=== PATIENT | female | born 1950 | race Caucasian/White ===

== ENCOUNTER 2025-11-10 13:12 | Outpatient (AMB) | payer BC, SELFPAY ==
--- OUTSIDE RECORDS SUMMARY | 2025-11-10 13:14 | XMS_ITS | Encounter Summary ---
Author Organization [facility] Address [address] [place] [address] Phone Care Team Providers Care Note Teller Name Role Phone Marvin Bailey MD Primary Care Provider [phone] Marvin Bailey MD Primary Care Provider [phone] Jean Cardenas MD Primary Care Provider [phone] Robby Ambrosio MD Primary Care Provide r ElieSonny mullen DO Unavailable [phone] Encounter Details Date Type Department Care Team (Late st Contact Info) Description 01/01/2018 Ancillary Orders [address] [address] Molly Olson PA-C [address] [place] [address] Orthopedics & Sports Medicine, [facility] [place] [address] [email or web address] History of total knee arthroplasty, right Social History Tobacco Use Types Packs/Day Years Used Date Smoking Tobacco: Never Smokeless Tobacco: Never Alcohol Use Standard Drinks/Week Comments Yes 0 (1 standard drink = 0.6 oz pur e alcohol) rarely Comments Unknown Sex and Gender Information Value Date Recorded Sex Assigned at Female 05/30/2020 5:41 PM EDT Legal Sex Female 10:05 PM EDT Gender Identity Female 05/30/2020 5:41 PM EDT Sexual Orientation Straight 05/30/2020 5: 41 PM EDT documented as of this encounter Plan of Treatment Upcoming Encounters Date Type Department Care Team (Late st Contact Info) Description 03/16/2026 1:30 PM EDT Office Visit [facility] [address] [place] [address] Sonny Delgadillo DO [address] [place] [address] [email or web address] documented as of this encounter Results * XR KNEE 3 VIEW (RIGHT) (01/01/2018 11:15 AM EST) Narrative Zoraida Sawyer Y - 01/01/2018 11:15 AM EST This image report has been auto-finalized and has not been read by a Radiologist. Interpretation has been included in the provider encounter note for this date of service. Molly Olson PA-C IMG XR LOWER EXTREMI TY Final Result documented in this encounter Visit Diagnoses Diagnosis History of total knee arthroplasty, right History of total knee arthroplasty, right documented in this encounter Additional Health Concerns Infection Onset Date Last Indicated Resolved Time CoV-Risk 03/24/2024 03/24/2024 04/04/2024 1:23 AM EDT documented as of this encounter Care Teams Note Teller Relationship Specialty Start Date End [place] [address] [email or web address] PCP - General 09/02/17 08/09/19 [place] [address] PCP - General Internal Medicine 08/10/19 05/29/20 Jean Cardenas MD [address] [address] [email or web address] PCP - General 05/30/20 07/08/21 Robby Ambrosio MD [address] [address] PCP - General Family Medicine 07/09/21 Sonny Delgadillo DO [address] [place] [address] Geriatric Medicine 09/03/25 documented as of this encounter Additional Source Comments The information contained in this document represents components of the legal health record. It is not the complete legal health record.[facility]
--- OUTSIDE RECORDS SUMMARY | 2025-11-10 13:14 | XMS_ITS | Encounter Summary ---
Author Organization [facility] Address [address] [place] [address] [address] [place] [address] Phone Care Team Providers Care Weatherization Operations Manager Name Role Phone Marvin Bailey MD Primary Care Provider [phone] Marvin Bailey MD Primary Care Provider [phone] Jean Cardenas MD Primary Care Provider [phone] Robby Ambrosio MD Primary Care Provide r ElieSonny mullen DO Unavailable [phone] Encounter Details Date Type Department Care Team (Late st Contact Info) Description 01/01/2018 Ancillary Orders [facility] [address] [place] [address] Molly Olson PA-C [address] [place] [address] Orthopedics & Sports Medicine, [place] [address] Social History Tobacco Use Types Packs/Day Years [...] Upcoming Encounters Date Type Department Care Team ([facility] st Contact Info) Description 03/16/2026 1:30 PM EDT Office Visit [facility] Geriatric[facility] [address] [place] [address] [place] [address] [email or web address] documented as of this encounter Visit Diagnoses Not on filedocumented in this encounter Additional Health Concerns Infection Onset Date Last Indicated Resolved Time CoV-Risk 03/24/2024 03/24/2024 04/04/2024 1:23 AM EDT documented as of this encounter Care Teams Weatherization Operations Manager Relationship Specialty Start Date End [place] [address] [email or web address] PCP - General 09/02/17 08/09/19 [place] [address] [email or web address] PCP - General Internal Medicine 08/10/19 05/29/20 Jean Cardenas MD [address] [address] [email or web address] PCP - General 05/30/20 07/08/21 Robby Ambrosio MD [address] [address] PCP - General Family Medicine 07/09/21 Sonny Delgadillo DO [address] [place] [address] [email or web address] Geriatric Medicine 09/03/25 documented as of this encounter Additional Source Comments The information contained in this document represents components of the legal health record. It is not the complete legal health record.[facility]
--- OUTSIDE RECORDS SUMMARY | 2025-11-10 13:14 | XMS_ITS | Clinical Summary ---
Author Organization [facility] Address [address] [place] [address] Phone Care Team Providers Care Stone Rougher Name Role Phone Robby Ambrosio MD Primary Care Provide r Sonny Delgadillo DO Unavailable [phone] Allergies Active Allergy Reactions Criticality Noted Date Comments Diazepam Headaches Medium 10/26/2015 Other reaction(s): Other (See Comments) Naproxen Nausea and/or Vomiting 09/27/2023 Medications MULTIVIT-MINERAL S/FERROUS FUM (MULTI VITAMIN ORAL) Active FLUoxetine (PROZAC) 40 MG capsule Take 40 mg by mouth daily. Active cholecalciferol (VITAMIN D3) 2,000 unit capsule Take 2,000 Units by mouth daily. Active omeprazole (PRILOSEC) 20 MG capsule Take by mouth daily. 1 Active losartan (COZAAR) 25 MG tabletIndication s:hypertension Take 25 mg by mouth daily. Indications: high blood pressure Active albuterol 90 mcg/actuation inhaler INHALE 1 PUFF 4 TIMES A DAY NEEDED WHEEZE 3 Active albuterol 2.5 mg/0.5 mL nebulizer solution Take 2.5 mg by nebulization . Active buPROPion (WELLBUTRIN XL) 150 MG ER 24 hr tablet Take 1 tablet by mouth every morning. 5 Active TRELEGY ELLIPTA 100-62.5-25 mcg inhalation powder INHALE 1 PUFF EVERY DAY FOR 30 DAYS 5 Active donepeziL (ARICEPT) 5 MG tabletIndication s:Mild vascular dementia with mood disturbance TAKE 1 TABLET (5 MG TOTAL) BY MOUTH DAILY. 90 tablet Active meloxicam (MOBIC) 7.5 MG tablet Take 7.5 mg by mouth daily. 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 BMI 45.0-49.9, adult 09/16/2025 Hypochloremia 09/16/2025 Hyponatremia 09/16/2025 Left knee pain 09/16/2025 Major depressive disorder, recurrent episode, mi ld 09/16/2025 Dementia 09/16/2025 Morbid obesity 09/16/2025 Urinary incontinence 09/16/2025 Mild vascular dementia with mood disturbance 03/2025 Dizziness 06/10/2025 Tremor 06/10/2025 Gluteal pain 06/30/2024 Moderate persistent asthma 09/27/202309/27 Primary osteoarthritis of both knees 09/27/2023 09/27/2023 COVID-19 virus infection 06/20/2022 023 Gastroesophageal reflux disease with hiatal claudia ia 06/20/2022 09/27/2023 AYAKA (obstructive sleep apnea) 06/20/2022 Overview (09/27/2023): severe severe Prediabetes 06/20/2022 09/27/2023 Asthma 06/20/2022 Concussion 06/11/2022 09/27/2023 Balance problem 06/11/2022 Hematoma 06/11/2022 Major depression in remission 06/11/2022 Orbital fracture 06/11/2022 BPPV (benign paroxysmal positional vertigo) 06/202209/27/2023 Lower GI bleed 05/30/2020 Assessment & Plan (05/30/2020 10:59 PM EDT): I suspect lower source, such as diverticular or hemorrhoidal. Other differential diagnosis includes colitis, given the recent use of antibiotics, and colon cancer. She does not have abdominal pain or fever. Patient reports no history of GI bleed. She did have colonoscopy 15 years ago that was normal. She does take low-dose aspirin daily, and also recently started essential oils plus probiotic daily. She does relate that she has been on amoxicillin for a UTI for the past 4 days. Currently no active hemorrhage. She is hemodynamically stable. Hemoglobin is stable at 13. 1. Observation on the medical floor 2. Serial CBC, transfuse for hemoglobin less than 7 3. GoLYTELY prep this evening, GI will evaluate in the morning for colonoscopy 4. Serial abdominal exams 5. Send stool for WBC, culture, and C. difficile PCR 6. Clear liquid diet now, n.p.o. after midnight for colonoscopy tomorrow 7. Gentle IV fluid hydration after midnight with LR at 100 cc/h 8. Continue PPI as prescribed, hold aspirin UTI (urinary tract infection) 05/30/2020 Assessment & Plan (05/30/2020 10:46 PM EDT): No current urinary symptoms. No fever. Hold amoxicillin, repeat urinalysis with reflex culture. Hypertension 10/14/2018 Assessment & Plan (05/30/2020 10:46 PM EDT): Blood pressure is controlled. Hold hydrochlorothiazide with IV fluid hydration and bowel prep tonight. Depression 10/14/2018 Assessment & Plan (05/30/2020 10:45 PM EDT): Mood is stable. No SI or HI. Continue fluoxetine as prescribed. S/P TKR (total knee replacement) using cement, l eft 10/14/2018 Status post total right knee replacement 018 Overview (01/02/2018): 12/17/[address] Pedraza Primary osteoarthritis of right knee 12/17/2017 Primary osteoarthritis of left knee Encounters Date Type Department Care Team Description 09/18/2025 Refill [facility] [address] [place] [address] Sonny Delgadillo, DO Medication Refill 09/16/2025 9:30 AM EDT Office Visit [facility] [address] [place] [address] Sonny Delgadillo, Mild vascular dementia with mood disturbance (Primary Dx); Encounter for medication review; Encounter for support to caregiver; Mood disorder; Advance care planning from Last 3 Months Immunizations Immunization Administration Dates Next Due Influenza High-Dose Quadrivalent Preservative Fr ee IM 09/20/2021 Tdap 10/16/2019 Family History Medical History Relation Comments Hemophilia Brother Breast cancer Mother Relation Status Comments Brother Mother Social History Tobacco Use Types Packs/Day Years Used Date Smoking Tobacco: Never Smokeless Tobacco: Never Tobacco Cessation:Counseling Given: Not Answered Alcohol Use Standard Drinks/Week Comments Not Currently 0 (1 standard drink = 0.6 oz pur e alcohol) rarely Home Health Assessment: Transportation Answer Date Recorded Lack of Transportation (Medical) No 09/14/2024 Lack of Transportation (Non-Medical) No 09/14/2024 Patient Unable or Declines to Respond No 09/14/2024 Education Answer Date Recorded Are you interested in more education? Not on corrina e 03/15/2023 Are you concerned about learning? Not on file 03/15/2023 No 03/15/2023 No 03/15/2023 Digital Access Answer Date Recorded No 04/15/2023 No 04/15/2023 Reliable internet access at home? Not on file 04/15/2023 Device with a working camera? Not on file Intimate Partner Violence Answer Date R ecorded Are you denied basic needs s uch as food, clothing, or medical care? No 08/20/2024 In the past 12 months have y ou been in a relationship with a person who hurts, threatens, or tries to control you? No 08/20/2024 Are you denied basic needs s uch as food, clothing, or medical care? No 08/20/2024 In the past 12 months have y ou been in a relationship with a person who hurts, threatens, or tries to control you? No 08/20/2024 Comments Unknown Sex and Gender Information Value Date Recorded Sex Assigned at Female 05/30/2020 5:41 PM EDT Legal Sex Female 10:05 PM EDT Gender Identity Female 05/30/2020 5:41 PM EDT Sexual Orientation Straight 05/30/2020 5: 41 PM EDT Last Filed Vital Signs Vital Sign Reading Time Taken Comments Blood Pressure 141/70 09/16/2025 9:11 AM EDT Pulse 66 09/16/2025 9:11 AM EDT Temperature 36.7 C (98.1 F) 01/11/2025 5:57 PM EST Respiratory Rate 18 01/11/2025 5:57 PM EST Oxygen Saturation 98% 09/16/2025 9:11 AM EDT Inhaled Oxygen Concentration - - Weight 101 kg (222 lb 9.6 oz) 09/16/2025 9:11 AM EDT Height 157.5 cm (5' 2 ) 08/20/2024 11:24 AM EDT Body Mass Index 40.71 08/20/2024 11:24 AM EDT Plan of Treatment Upcoming Encounters Date Type Department Care Team (Late st Contact Info) Description 03/16/2026 1:30 PM EDT Office Visit [facility] [address] [place] [address] Sonny Delgadillo DO [address] [place] [address] [email or web address] Health Maintenance Due Date Last Done Comments LIPID PANEL 1950 HEPATITIS C SCREENING 1966 PNEUMOCOCCAL VACCINES (50+ years) (1 of 2 - PCV) 1967 COLOGUARD 1993 FIT TEST 1993 FOBT 1993 SIGMOIDOSCOPY 1993 VIRTUAL COLONOSCOPY 1993 OSTEOPOROSIS SCREENING INITIAL (ONE-TIME) 2013 INFLUENZA VACCINE (#1) 2025 , 08/24/2023, 09/04/2022, Additional history exists COVID-19 VACCINE ( season) 2025 07/22/2024, 08/24/2023, 04/04/2022, Additional history exists CREATININE LEVEL 01/11/2026 01/11/2025, 08/2022, 08/07/2021, Additional history exists POTASSIUM LEVEL 01/11/2026 01/11/2025, 05/18, 08/07/2021, Additional history exists BLOOD PRESSURE 03/17/2026 09/16/2025 DEPRESSION SCREENING 09/16/2026 09/16/2025, 09/16/20 25 COLONOSCOPY 05/24/2033 05/24/2023, 05/31/2020 COLORECTAL CANCER SCREENING 05/24/2033 Adult Td,Tdap Booster 09/03/2033 09/03/2023, 019 RSV VACCINE Completed 07/16/2024 ZOSTER VACCINES Completed 07/22/2024, 09/22/2020 SMOKING STATUS SCREENING (Once After 26 Yrs) Completed 09/16/2025 HEPATITIS A VACCINES Aged Out No long er eligible based on patient's age to complete this topic HIB VACCINES Aged Out No longer eligi ble based on patient's age to complete this topic MENINGOCOCCAL VACCINES (ACWY) Aged Out No longer eligible based on patient's age to complete this topic MENINGOCOCCAL VACCINES (B) Aged Out N o longer eligible based on patient's age to complete this topic Medical Devices Implanted Type Area Child Welfare Worker Device Identifier Shelf Expiration Date Model / Serial / Lot Cement Bone 40gr [employer] - [id number] Implanted:Qty: 2 on 12/17/2017 by Don Pedraza MD at [facility] Right: Knee [employer]ORE 02/15/2021 [id number] / / [id number] [employer] Open Intlk Fmrl Rt 57.5 Knee - [id number] Implanted:Qty: 1 on 12/17/2017 by Don Pedraza MD at [facility] Right: Knee [employer] 2026 [id number] / / [id number] Plate Bone 71mm Knee Tibial Tray I Beam Locking Bar [employer] Chrome Maxim Ea Knee 03a - [id number] Implanted:Qty: 1 on 12/17/2017 by Don Pedraza MD at [facility] Right: Knee [employer] 09/30/2027 [id number] / / [id number] Series A Pat W/Wr Std 34x8.5 1 Peg Knee - [id number] Implanted:Qty: 1 on 12/17/2017 by Don Pedraza MD at [facility] Right: Knee [employer] 11/15/2022 [id number] / / [id number] Knee Tibial Bearing E1 Vanguard Ps 71/75 X 14 - Discontinued Due To Tjr Project - [id number] Implanted:Qty: 1 on 12/17/2017 by Don Pedraza MD at [facility] Right: Knee [employer] 06/29/2022 [id number] / / [id number] Series A Pat W/Wr Std 34x8.5 1 Peg Knee [id number] Implanted:Qty: 1 on 10/14/2018 by Don Pedraza MD at [facility] Left: Knee [employer] 08/22/2023 [id number] / [id number] / [id number] Knee Tibal Bearing Vanguard Dcm Cr Lipped Knee - [id number] Implanted:Qty: 1 on 10/14/2018 by Don Pedraza MD at [facility] Left: Knee [employer] 03/17/2019 [id number] / / [id number] Cement Bone Biomet Standard R 1x40 Us - [id number] Implanted:Qty: 1 on 10/14/2018 by Don Pedraza MD at [facility] Left: Knee CHRISTY / [employer] OF [employer] 11/17/2022 [id number] / [id number] / [id number] Cement Bone Biomet Standard R 1x40 Us - [id number] Implanted:Qty: 1 on 10/14/2018 by Don Pedraza MD at [facility] Left: Knee CHRISTY / [employer] 11/17/2022 [id number] / [id number] / [id number] Plate Bone 71mm Knee Tibial Tray I Beam Locking Bar [employer] Chrome Maxim Ea Knee 03a - [id number] Implanted:Qty: 1 on 10/14/2018 by Don Pedraza MD at [facility] Left: Knee [employer] 08/29/2028 [id number] / [id number] / [id number] Implant Knee 60.0mm Femoral Component Interlok Left Ea Knee 02 - [id number] Implanted:Qty: 1 on 10/14/2018 by Don Pedraza MD at [facility] Left: Knee [employer] 09/06/2028 [id number] / [id number] / [id number] Procedures Procedure Name Priority Date/Time Associated Diagnosis Comments BASIC METABOLIC PANEL (BMP) STAT 01/11/2025 12:49 PM EST ENDOSCOPY, COLON 05/24/2023 10:5 7 AM EDT from Last 3 Months or Most Recently Relevant to Health Maintenance Results * (ABNORMAL) Basic metabolic panel (01/11/2025 12:49 PM EST) SODIUM 131(L) 133 - 146 mmol/L [facility] CHLORIDE 92(L) 96 - 108 mmol/L [facility] POTASSIUM 3.9 3.3 - 5.1 mmol/L [facility] CO2 26 21 - 35 mmol/L [facility] BUN 9 6 - 19 mg/dL [facility] CREATININE 0.80 0.5 - 1.5 mg/dL [facility] GLUCOSE 99 70 - 99 mg/dL [facility] CALCIUM 9.3 8.4 - 10.3 mg/dL [facility] EGFR 76 >59 mL/min/1.7 3m2 [facility] Comment:Estimated glomerular filtration rate calculated using the CKD-EPI refit equation. ANION GAP 17 10 - 20 mmol/L [facility] Blood 01/11/2025 12:4 9 PM EST 01/11/2025 12:55 PM EST us Lawanda Avina PA-C LAB BLOOD BKR ORDERABLES Fin al Result [address] [address] * ENDOSCOPY, COLON (05/24/2023 10:57 AM EDT) Narrative Transcriptions Carlos Barton MD - 05/24/2023 10:57 AM EDT [facility] Patient Name: Desi Saini Attending MD:: CARLOS BARTON MD, Procedure Date: 05/24/2023 10:57 AM Date of : 1950 Age: 72 Admit Type: Outpatient Gender: Female Room: [place] [address] Referring MD: Robby Ambrosio Exam Type: Colonoscopy Indications: High risk colon cancer surveillance: Personalhistory of colonic polyps, Last colonoscopy: May 2020 Medications: Monitored Anesthesia Care Procedure: Informed consent was obtained from the patientafter discussion of the indications, limitations, alternatives, benefits, and risks of the procedure. Risks specifically discussed include but are not limited to medication reactions, missed lesions, bleeding, perforation, or the need for emergent surgery. Throughout the procedure, the patient's blood pressure, pulse, end-tidal CO2, and oxygensaturations were monitored continuously. The Olympus adult variable colonoscope [id number] #6 was introduced through the anus and advanced to the terminal ileum, with identification of theappendiceal orifice and IC valve. The colonoscopy was performed without difficulty. The patient tolerated the procedure well. The quality of the bowelpreparation was good. Anatomical landmarks were photographed. Complications: No immediate complications. Estimated blood loss:None. Findings: The terminal ileum appeared normal. Examination of the right colon was repeated in retroflexion and again in NBI. Retroflexion wasalso performed in the rectum. A few diverticula were found in the sigmoidcolon. Two sessile polyps were found in the ascendingcolon. The polyps were 3 to 4 mm in size. These polypswere removed with a cold snare. Resection and retrieval were complete. A 4 mm polyp was found in the descending colon. The polyp was sessile. The polyp was removed with acold snare. Resection and retrieval were complete. The exam was otherwise without abnormality. Impression: - The examined portion of the ileum was normal. - Two 3 to 4 mm polyps in the ascending colon,removed with a cold snare. Resected and retrieved. - One 4 mm polyp in the descending colon, removedwith a cold snare. Resected and retrieved. - The examination was otherwise normal. Recommendation: - Patient has a contact number available for emergencies. The signs and symptoms of potential delayed complications were discussed with thepatient. Return to normal activities tomorrow. Written discharge instructions were provided to thepatient. - Await pathology results. - Repeat colonoscopy for surveillance based on pathology results. Carlos Barton CARLOS BARTON MD 05/24/2023 11:44:07 AM This report has been signed electronically. Number of Addenda: 0 Note Initiated On: 05/24/2023 10:57 AM Procedure Code(s): --- Professional --- 69619, Colonoscopy, flexible; with removal of tumor(s), polyp(s), or other lesion(s) by snare technique --- Technical --- 34848, Colonoscopy, flexible; with removal of tumor(s), polyp(s), or other lesion(s) by snare technique CPT copyright 2021 [employer]. All rights reserved. The codes documented in this report are preliminary and upon invoice coder reviewmay be revised to meet current compliance requirements. Procedure Date: 05/24/2023 10:57:[address] [place] [address] Robby Marti MD GI PROCEDURE ORDERABL ES Final Result from Last 3 Months or Most Recently Relevant to Health Maintenance Insurance [place] BLUE [facility] [address] [place] [address]B [facility] MEDICARE O BLUE REPLACEMENT [address] [place], [place] [address]B [facility] MEDICARE HMO [place] [address] [place] [address] [employer] BLUE REPLACEMENT [address] [place], [place] [address]B [facility] MEDICARE HMO [place] [address] [place] [address] QMB [facility] MEDICARE HMO BLUE REPLACEMENT [address] [place], [place] [address]B MEDICARE HMO BLUE REPLACEMENT MEDICARE O BLUE REPLACEMENT MEDICARE HMO BLUE REPLACEMENT Advance Directives For more information, please contact: [phone] (9AM - 5PM [facility], Saturday-Saturday) Documents on File Type Date Recorded Patient Reimbursement Representative Expl anation Healthcare Proxy 10/01/2018 HCP * Full Code (Confirmed) (Latest Code Status on File) Date Activated Date Inactivated Comments 05/30/2020 11:21 PM Question Answer Comments Code Status Confirmed With: Patient * Full Code (Presumed) Date Activated Date Inactivated Comments 10/14/2018 10:47 AM 10/16/2018 3:50 PM * Full Code (Presumed) Date Activated Date Inactivated Comments 10/14/2018 6:32 AM 10/14/2018 10:47 AM * Full Code (Presumed) Date Activated Date Inactivated Comments 12/17/2017 11:05 AM 12/20/2017 1:36 PM * Full Code (Presumed) Date Activated Date Inactivated Comments 12/17/2017 6:24 AM 12/17/2017 11:05 AM Healthcare Agents on File Name Relationship Healthcare Agent Relationshi p Communication Janae Bolden Daughter .Primary Health Care Agent (Proxy form on file) Care Teams Stone Rougher Relationship Specialty Start Date End Date Robby Ambrosio MD [address] [place] [address] PCP - General Family Medicine 07/09/21 Sonny Delgadillo DO [address] [place] [address] [email or web address] Geriatric Medicine 09/03/25 Additional Source Comments The information contained in this document represents components of the legal health record. It is not the complete legal health record.[facility]
--- OUTSIDE RECORDS SUMMARY | 2025-11-10 13:15 | XMS_ITS | Encounter Summary ---
Author Organization [facility] Address [address] [place] [address] [place] [address] Phone Care Team Providers Care Regional Facilities Manager Name Role Phone Robby Ambrosio MD Primary Care Provide r Sonny Delgadillo DO Unavailable [phone] Encounter Details Date Type Department Care Team (Late st Contact Info) Description 05/27/2022 Procedure Pass [facility], Ct Scan - [address] [address] Social History Tobacco Use Types Packs/Day Years [...] Description 03/16/2026 1:30 PM EDT Office Visit [facility] [address] [place] [address] Sonny Delgadillo, DO [address] [place] [address] documented as of this encounter Visit Diagnoses Not on filedocumented in this encounter Additional Health Concerns Infection Onset Date Last Indicated Resolved Time CoV-Risk 03/24/2024 03/24/2024 04/04/2024 1:23 AM EDT documented as of this encounter Care Teams Regional Facilities Manager Relationship Specialty Start Date End Date Robby Ambrosio MD [address] [address] PCP - General Family Medicine 07/09/21 Sonny Delgadillo DO [address] [place] [address] Geriatric Medicine 09/03/25 documented as of this encounter Additional Source Comments The information contained in this document represents components of the legal health record. It is not the complete legal health record.[facility]
--- OUTSIDE RECORDS SUMMARY | 2025-11-10 13:15 | XMS_ITS | Encounter Summary ---
Author Organization [facility] Address [address] [place] [address] Phone Care Team Providers Care Behavioral Health Consultant Name Role Phone Marvin Bailey MD Primary Care Provider Jean Cardenas MD Primary Care Provider [phone] Robby Ambrosio MD Primary Care Provide r ElieSonny mullen DO Unavailable [phone] Reason for Referral * MRI/CAT Scan - Closed Specialty Diagnoses / Procedures Referred By Yaneth marx Referred To Contact Radiology Diagnoses Ataxia Left-sided weakness Procedures MRI Brain Fabio Mendes MD Phone: tel: fax: mailto:[email or web address] Referral ID Status Reason Start Date Expiration Date Visits Re quested Visits Authorized [id number] Closed 08/10/2019 10/08/2019 1 1 Encounter Details Date Type Department Care Team (Latest Contact Info) Description 08/10/2019 Transcribe Orders [facility] Department [address] [place] [address] Fabio Mendes MD [address] [place] [address], [address] [place], [place] [id number] [email or web address] Ataxia (Primary Dx); Left-sided weakness Social History Tobacco Use Types Packs/Day Years [...] Description 03/16/2026 1:30 PM EDT Office Visit [facility] [address] [place] [address] Sonny Delgadillo DO [address] [place] [address] [email or web address] documented as of this encounter Results * MRI BRAIN WITHOUT CONTRAST (08/22/2019 10:12 AM EDT) Anatomical Region Laterality Modality Head Magnetic Resonan ce 08/22/2019 10:3 5 PM EDT Impressions 08/22/2019 11:08 PM EDT 1. No midline shift, mass effect or acute ischemia. 2. Very minimal supratentorial chronic white matter disease. POS - [id number] Edited by: Karley Sparks on 08/22/2019 10:47 PM Narrative 08/22/2019 11:08 PM EDT EXAM: MRI BRAIN WITHOUT CONTRAST HISTORY: + Abnormal gait (ataxia) [sign/sx], frequent falls, imbalance. COMPARISON: None. TECHNIQUE: MRI brain without contrast. Exam performed on a 1.5 Johanne high-field MRI scanner with the following sequences: Axial T1, T2, T2*gradient echo, T2 FLAIR and DWI with ADC map, sagittal T1. Axial 3-D FIESTA images through the IACs. MRI HEAD FINDINGS: Extra-axial spaces: The ventricles, sulci and cisternal spaces are normal in size and configuration. No abnormal extra-axial fluid collections. Brain: There is no intracranial hemorrhage. There is no midline shift, mass effect or brain edema. There are no abnormalities on the diffusion restriction to suggest acute or subacute ischemia. The cerebellar tonsils are normal in position. There is a partial empty sella. Minimal scattered punctate foci of increased T2/T2 FLAIR signal seen in the bilateral periventricular and subcortical white matter. There is no mass or signal abnormality in the brainstem, cerebellopontine angle cisterns or internal auditory canals. There is normal cerebrospinal fluid signal within the prepontine cistern, cerebellopontine angle cisterns, internal auditory canals and labyrinthine structures. The 7th and 8th nerve complexes are normal in course and caliber. Bones: Normal bone marrow signal. Globes and orbits: No significant abnormalities. Included paranasal sinuses and mastoid air cells: Normal in signal. Extracranial soft tissues: Normal. Vascular: Normal flow voids present within the major intracranial arteries at the skull base. Procedure Note Rayna Garcia MD - 08/22/2019 EXAM: MRI BRAIN WITHOUT CONTRAST HISTORY: + Abnormal gait (ataxia) [sign/sx], frequent falls, imbalance. COMPARISON: None. TECHNIQUE: MRI brain without contrast. Exam performed on a 1.5 Teslahigh-field MRI scanner with the following sequences: Axial T1, T2,T2*gradient echo, T2 FLAIR and DWI with ADC map, sagittal T1. Axial 3-DFIESTA images through the IACs. MRI HEAD FINDINGS: Extra-axial spaces: The ventricles, sulci and cisternal spaces are normalin size and configuration. No abnormal extra-axial fluid collections. Brain: There is no intracranial hemorrhage. There is no midline shift,mass effect or brain edema. There are no abnormalities on the diffusionrestriction to suggest acute or subacute ischemia. The cerebellar tonsils are normal in position. There is a partial emptysella. Minimal scattered punctate foci of increased T2/T2 FLAIR signal seen inthe bilateral periventricular and subcortical white matter. There is no mass or signal abnormality in the brainstem, cerebellopontineangle cisterns or internal auditory canals. There is normal cerebrospinalfluid signal within the prepontine cistern, cerebellopontine anglecisterns, internal auditory canals and labyrinthine structures. The 7thand 8th nerve complexes are normal in course and caliber. Bones: Normal bone marrow signal. Globes and orbits: No significant abnormalities. Included paranasal sinuses and mastoid air cells: Normal in signal. Extracranial soft tissues: Normal. Vascular: Normal flow voids present within the major intracranial arteriesat the skull base. IMPRESSION: 1. No midline shift, mass effect or acute ischemia. 2. Very minimal supratentorial chronic white matter disease. POS - [id number] Edited by: Karley Sparks on 08/22/2019 10:47 PM Fabio Mendes MD IMG MR HEAD/NECK Final Resul t documented in this encounter Visit Diagnoses Diagnosis Ataxia- Primary Lack of coordination Left-sided weakness Ataxia Lack of coordination Left-sided weakness documented in this encounter Additional Health Concerns Infection Onset Date Last Indicated Resolved Time CoV-Risk 03/24/2024 03/24/2024 04/04/2024 1:23 AM EDT documented as of this encounter Care Teams Behavioral Health Consultant Relationship Specialty Start Date End [place] [address] [email or web address] PCP - General Internal Medicine 08/10/19 05/29/20 Jean Cardenas MD [address] [address] [email or web address] PCP - General 05/30/20 07/08/21 Robby Ambrosio MD [address] [address] PCP - General Family Medicine 07/09/21 Sonny Delgadillo DO [address] [place] [address] (work) [email or web address] Geriatric Medicine 09/03/25 documented as of this encounter Additional Source Comments The information contained in this document represents components of the legal health record. It is not the complete legal health record.[facility]
--- OUTSIDE RECORDS SUMMARY | 2025-11-10 13:15 | XMS_ITS | Encounter Summary ---
Author Organization [facility] Address [address] [place] [address] [place] [address] Phone Care Team Providers Care Medical Device Sales Name Role Phone Jean Cardenas MD Primary Care Provider [phone] Robby Ambrosio MD Primary Care Provide r Sonny Delgadillo DO Unavailable [phone] Encounter Details Date Type Department Care Team (Late st Contact Info) Description 06/30/2021 Ancillary Orders [facility],Outside Imaging [address] [place] [address] System, Provider Not In, [place] [address] Social History Tobacco Use Types Packs/Day Years [...] Office Visit [facility] [address] [place] [address] Sonny Delgadillo, 22 [place] [address] documented as of this encounter Results * XR Lower Extremity Outside (No Interpretation) (12/03/2019 12:00 AM EST) Narrative SYSTEMGENERATED, DOCUMENTATION - 06/30/2021 9:59 AM EDT This study is for PACS storage only and not for interpretation. us Provider Not In System PhD IMG OUTSIDE IMAGING W /OUT INTERPRETATION Final Result documented in this encounter Visit Diagnoses Not on filedocumented in this encounter Additional Health Concerns Infection Onset Date Last Indicated Resolved Time CoV-Risk 03/24/2024 03/24/2024 04/04/2024 1:23 AM EDT documented as of this encounter Care Teams Medical Device Sales Relationship Specialty Start Date End Date Jean Cardenas MD [address] [facility] [address] [place] [address] [email or web address] PCP - General 05/30/20 07/08/21 Robby Ambrosio MD [address] [address] PCP - General Family Medicine 07/09/21 Sonny Delgadillo DO [address] [place] [address] Geriatric Medicine 09/03/25 documented as of this encounter Additional Source Comments The information contained in this document represents components of the legal health record. It is not the complete legal health record.[facility]
--- OUTSIDE RECORDS SUMMARY | 2025-11-10 13:15 | XMS_ITS | Encounter Summary ---
Author Organization [facility] Address [address] [place] [address] [place] [address] Phone Care Team Providers Care Spanish Interpreter Name Role Phone Robby Ambrosio MD Primary Care Provide r Sonny Delgadillo DO Unavailable [phone] Encounter Details Date Type Department Care Team (Late st Contact Info) Description 05/27/2022 Procedure Pass [facility], Ct Scan - [address] [address] Social History Tobacco Use Types Packs/Day Years [...] Description 03/16/2026 1:30 PM EDT Office Visit [facility] [address] [place] [address] Sonny Delgadillo, DO [address] [place] [address] documented as of this encounter Visit Diagnoses Not on filedocumented in this encounter Additional Health Concerns Infection Onset Date Last Indicated Resolved Time CoV-Risk 03/24/2024 03/24/2024 04/04/2024 1:23 AM EDT documented as of this encounter Care Teams Spanish Interpreter Relationship Specialty Start Date End Date Robby Ambrosio MD [address] [address] PCP - General Family Medicine 07/09/21 Sonny Delgadillo DO [address] [place] [address] Geriatric Medicine 09/03/25 documented as of this encounter Additional Source Comments The information contained in this document represents components of the legal health record. It is not the complete legal health record.[facility]
--- OUTSIDE RECORDS SUMMARY | 2025-11-10 13:15 | XMS_ITS | Encounter Summary ---
Author Organization [facility] Address [address] [place] [address] [address] [place] [address] Phone Care Team Providers Care Systems Support Engineer Name Role Phone Marvin Bailey MD Primary Care Provider [phone] Marvin Bailey MD Primary Care Provider [phone] Jean Cardenas MD Primary Care Provider [phone] Robby Ambrosio MD Primary Care Provide r ElieSonny mullen DO Unavailable [phone] Encounter Details Date Type Department Care Team (Late st Contact Info) Description 12/30/2017 Ancillary Orders [facility] [address] [place] [address] Molly Olson PA-C [address] [place] [address] Orthopedics & Sports Medicine, [place] [address] Social History Tobacco Use Types Packs/Day Years [...] Upcoming Encounters Date Type Department Care Team ([facility] st Contact Info) Description 03/16/2026 1:30 PM EDT Office Visit [facility] Geriatrics [facility] [address] [place] [address] [place] [address] [email or web address] documented as of this encounter Visit Diagnoses Not on filedocumented in this encounter Additional Health Concerns Infection Onset Date Last Indicated Resolved Time CoV-Risk 03/24/2024 03/24/2024 04/04/2024 1:23 AM EDT documented as of this encounter Care Teams Systems Support Engineer Relationship Specialty Start Date End [place] [address] [email or web address] PCP - General 09/02/17 08/09/19 [place] [address] [email or web address] PCP - General Internal Medicine 08/10/19 05/29/20 Jean Cardenas MD [address] [address] [email or web address] PCP - General 05/30/20 07/08/21 Robby Ambrosio MD [address] [address] PCP - General Family Medicine 07/09/21 Sonny Delgadillo DO 22 [place] [address] [email or web address] Geriatric Medicine 09/03/25 documented as of this encounter Additional Source Comments The information contained in this document represents components of the legal health record. It is not the complete legal health record.[facility]
--- OUTSIDE RECORDS SUMMARY | 2025-11-10 13:15 | XMS_ITS | Encounter Summary ---
Author Organization [facility] Address [address] [place] [address] Phone Care Team Providers Care Floor Covering Contractor Name Role Phone Marvin Bailey MD Primary Care Provider [phone] Marvin Bailey MD Primary Care Provider [phone] Jean Cardenas MD Primary Care Provider [phone] Robby Ambrosio MD Primary Care Provide r ElieSonny mullen DO Unavailable [phone] Encounter Details Date Type Department Care Team (Late st Contact Info) Description 12/30/2017 Ancillary Orders [address] [address] Molly Olson PA-C [address] [place] [address] Orthopedics & Sports Medicine, [place] [address] [email or web address] Left knee pain, unspecified chronicity Social History Tobacco Use Types Packs/Day Years [...] Description 03/16/2026 1:30 PM EDT Office Visit [facility] [address] [place] [address] Sonny [place] [address] [email or web address] documented as of this encounter Visit Diagnoses Diagnosis Left knee pain, unspecified chronicity documented in this encounter Additional Health Concerns Infection Onset Date Last Indicated Resolved Time CoV-Risk 03/24/2024 03/24/2024 04/04/2024 1:23 AM EDT documented as of this encounter Care Teams Floor Covering Contractor Relationship Specialty Start Date End [place] [address] [email or web address] PCP - General 09/02/17 08/09/19 [place] [address] [email or web address] PCP - General Internal Medicine 08/10/19 05/29/20 Jean Cardenas MD [address] [place] [address] [email or web address] PCP - General 05/30/20 07/08/21 Robby Ambrosio MD [address] [address] PCP - General Family Medicine 07/09/21 Sonny Delgadillo DO 22 [place] [address] [email or web address] Geriatric Medicine 09/03/25 documented as of this encounter Additional Source Comments The information contained in this document represents components of the legal health record. It is not the complete legal health record.[facility]
--- OUTSIDE RECORDS SUMMARY | 2025-11-10 13:15 | XMS_ITS | Encounter Summary ---
Author Organization [facility] Address [address] [place] [address] [place] [address] Phone Care Team Providers Care Track Man Name Role Phone Jean Cardenas MD Primary Care Provider [phone] Robby Ambrosio MD Primary Care Provide r Sonny Delgadillo DO Unavailable Encounter Details Date Type Department Care Team (Late st Contact Info) Description 05/31/2020 Procedure Pass [facility] Endoscopy Admitting Dept Virtual Department [address] [place] [address] Social History Tobacco Use Types Packs/Day Years [...] Description 03/16/2026 1:30 PM EDT Office Visit [facility] [address] [place] [address] Sonny Delgadillo DO [address] [place] [address] [email or web address] documented as of this encounter Visit Diagnoses Not on filedocumented in this encounter Additional Health Concerns Infection Onset Date Last Indicated Resolved Time CoV-Risk 03/24/2024 03/24/2024 04/04/2024 1:23 AM EDT documented as of this encounter Care Teams Track Man Relationship Specialty Start Date End Date Jean Cardenas MD [address] [facility] [address] [place] [address] [email or web address] PCP - General 05/30/20 07/08/21 Robby Ambrosio MD [address] [address] PCP - General Family Medicine 07/09/21 Sonny Delgadillo DO [address] [place] [address] Geriatric Medicine 09/03/25 documented as of this encounter Additional Source Comments The information contained in this document represents components of the legal health record. It is not the complete legal health record.[facility]
--- OUTSIDE RECORDS SUMMARY | 2025-11-10 13:15 | XMS_ITS | Encounter Summary ---
Author Organization [facility] Address [address] [place] [address] [place] [address] Phone Care Team Providers Care E Learning Coordinator Name Role Phone Robby Ambrosio MD Primary Care Provide r Sonny Delgadillo DO Unavailable [phone] Encounter Details Date Type Department Care Team (Hussein Contact Info) Description 03/24/2024 Procedure Pass [facility], Ct Scan - [address] [address] Social History Tobacco Use Types Packs/Day Years Used Date Smoking Tobacco: Never Smokeless Tobacco: Never Alcohol Use Standard Drinks/Week Comments Not Currently 0 (1 standard drink = 0.6 oz pur e alcohol) rarely Education Answer Date Recorded Are you interested in more education? Not on corrina e 03/15/2023 Are you concerned about learning? Not on file 03/15/2023 No 03/15/2023 No 03/15/2023 Digital Access Answer Date Recorded No 04/15/2023 No 04/15/2023 Reliable internet access at home? Not on file 04/15/2023 Device with a working camera? Not on file Comments Unknown Sex and Gender Information Value Date Recorded Sex Assigned at Female 05/30/2020 5:41 PM EDT Legal Sex Female 10:05 PM EDT Gender Identity Female 05/30/2020 5:41 PM EDT Sexual Orientation Straight 05/30/2020 5: 41 PM EDT documented as of this encounter Plan of Treatment Upcoming Encounters Date Type Department Care Team ([facility] st Contact Info) Description 03/16/2026 1:30 PM EDT Office Visit [facility] [address] [place] [address] Sonny Delgadillo DO [address] [place] [address] documented as of this encounter Visit Diagnoses Not on filedocumented in this encounter Additional Health Concerns Infection Onset Date Last Indicated Resolved Time CoV-Risk 03/24/2024 03/24/2024 04/04/2024 1:23 AM EDT documented as of this encounter Care Teams E Learning Coordinator Relationship Specialty Start Date End Date Robby Ambrosio MD [address] [address] PCP - General Family Medicine 07/09/21 Sonny Delgadillo DO [address] [place] [address] Geriatric Medicine 09/03/25 documented as of this encounter Additional Source Comments The information contained in this document represents components of the legal health record. It is not the complete legal health record.[facility]
--- OUTSIDE RECORDS SUMMARY | 2025-11-10 13:15 | XMS_ITS | Encounter Summary ---
Author Organization [facility] Address [address] [place] [address] Phone Care Team Providers Care Wrapper Stemmer Operator Name Role Phone Marvin Bailey MD Primary Care Provider [phone] Marvin Bailey MD Primary Care Provider [phone] Jean Cardenas MD Primary Care Provider [phone] Robby Ambrosio MD Primary Care Provide r ElieSonny mullen DO Unavailable Encounter Details Date Type Department Care Team (Late st Contact Info) Description 10/14/2018 Procedure Pass [place] Admitting Dept - Virtual Department [address] [place] [address] Social History Tobacco Use Types Packs/Day Years [...] Description 03/16/2026 1:30 PM EDT Office Visit [facility]s [facility] [address] [place] [address] [place] [address] [email or web address] documented as of this encounter Visit Diagnoses Not on filedocumented in this encounter Additional Health Concerns Infection Onset Date Last Indicated Resolved Time CoV-Risk 03/24/2024 03/24/2024 04/04/2024 1:23 AM EDT documented as of this encounter Care Teams Wrapper Stemmer Operator Relationship Specialty Start Date End [place] [address] [email or web address] PCP - General 09/02/17 08/09/19 [place] [address] [email or web address] PCP - General Internal Medicine 08/10/19 05/29/20 Jean Cardenas MD [address] [place] [address] [email or web address] PCP - General 05/30/20 07/08/21 [facility] [address] [address] PCP - General Family Medicine 07/09/21 Sonny Delgadillo DO 22 [place] [address] [email or web address] Geriatric Medicine 09/03/25 documented as of this encounter Additional Source Comments The information contained in this document represents components of the legal health record. It is not the complete legal health record.[facility]
--- OUTSIDE RECORDS SUMMARY | 2025-11-10 13:15 | XMS_ITS | Encounter Summary ---
Author Organization [facility] Address [address] [place] [address] [place] [address] Phone Care Team Providers Care Boilermaker Name Role Phone Jean Cardenas MD Primary Care Provider [phone] Robby Ambrosio MD Primary Care Provide r Sonny Delgadillo DO Unavailable [phone] Encounter Details Date Type Department Care Team (Late st Contact Info) Description 06/30/2021 Ancillary Orders ,Outside Imaging [address] [place] [address] System, Provider [place] In, [place] [address] Social History Tobacco Use Types Packs/Day Years [...] 03/16/2026 1:30 PM EDT Office Visit [facility] 22 [place] [address] Sonny Delgadillo, 22 [place] [address] documented as of this encounter Results * XR Lower Extremity Outside (No Interpretation) (06/23/2021 12:00 AM EDT) Narrative SYSTEMGENERATED, DOCUMENTATION - 06/30/2021 9:52 AM EDT This study is for PACS storage only and not for interpretation. us Provider Not In System PhD IMG OUTSIDE IMAGING W /OUT INTERPRETATION Final Result documented in this encounter Visit Diagnoses Not on filedocumented in this encounter Additional Health Concerns Infection Onset Date Last Indicated Resolved Time CoV-Risk 03/24/2024 03/24/2024 04/04/2024 1:23 AM EDT documented as of this encounter Care Teams Boilermaker Relationship Specialty Start Date End Date Jean Cardenas MD [address] [address] [email or web address] PCP - General 05/30/20 07/08/21 Robby Ambrosio MD [address] [address] PCP - General Family Medicine 07/09/21 Sonny Delgadillo DO 22 [place] [address] Geriatric Medicine 09/03/25 documented as of this encounter Additional Source Comments The information contained in this document represents components of the legal health record. It is not the complete legal health record.[facility]
--- OUTSIDE RECORDS SUMMARY | 2025-11-10 13:15 | XMS_ITS | Encounter Summary ---
Author Organization [facility] Address [address] [place] [address] [place] [address] Phone Care Team Providers Care Topographical Drafter Name Role Phone Marvin Bailey MD Primary Care Provider Jean Cardenas MD Primary Care Provider [phone] Robby Ambrosio MD Primary Care Provide r Sonny Delgadillo DO Unavailable [phone] Encounter Details Date Type Department Care Team (Late st Contact Info) Description 08/10/2019 Procedure Pass [facility], [address] [address] Social History Tobacco Use Types Packs/Day Years [...] Description 03/16/2026 1:30 PM EDT Office Visit [facility] [address] [place] [address] Sonny Delgadillo DO 22 [place] [address] documented as of this encounter Visit Diagnoses Not on filedocumented in this encounter Additional Health Concerns Infection Onset Date Last Indicated Resolved Time CoV-Risk 03/24/2024 03/24/2024 04/04/2024 1:23 AM EDT documented as of this encounter Care Teams Topographical Drafter Relationship Specialty Start Date End [place] [address] PCP - General Internal Medicine 08/10/19 05/29/20 Jean Cardenas MD [address] [address] [email or web address] PCP - General 05/30/20 07/08/21 Robby Ambrosio MD [address] [address] PCP - General Family Medicine 07/09/21 Sonny Delgadillo DO 22 [place] [address] Geriatric Medicine 09/03/25 documented as of this encounter Additional Source Comments The information contained in this document represents components of the legal health record. It is not the complete legal health record.[facility]
--- OUTSIDE RECORDS SUMMARY | 2025-11-10 13:15 | XMS_ITS | Encounter Summary ---
Author Organization [facility] Address [address] [place] [address] [place] [address] Phone Care Team Providers Care Bottle Carrier Name Role Phone Robby Ambrosio MD Primary Care Provide r Sonny Delgadillo DO Unavailable [phone] Encounter Details Date Type Department Care Team (Late st Contact Info) Description 08/07/2021 Procedure Pass [facility], Ct Scan - [address] [address] Social History Tobacco Use Types Packs/Day Years [...] Description 03/16/2026 1:30 PM EDT Office Visit [facility] 22 [place] [address] Sonny Delgadillo, DO 22 [place] [address] documented as of this encounter Visit Diagnoses Not on filedocumented in this encounter Additional Health Concerns Infection Onset Date Last Indicated Resolved Time CoV-Risk 03/24/2024 03/24/2024 04/04/2024 1:23 AM EDT documented as of this encounter Care Teams Bottle Carrier Relationship Specialty Start Date End Date Robby Ambrosio MD [address] [address] PCP - General Family Medicine 07/09/21 Sonny Delgadillo DO 22 [place] [address] Geriatric Medicine 09/03/25 documented as of this encounter Additional Source Comments The information contained in this document represents components of the legal health record. It is not the complete legal health record.[facility]
--- OUTSIDE RECORDS SUMMARY | 2025-11-10 13:15 | XMS_ITS | Encounter Summary ---
Author Organization [facility] Address [address] [place] [address] Phone Care Team Providers Care Roll Bucker Name Role Phone Robby Ambrosio MD Primary Care Provide r Sonny Delgadillo DO Unavailable [phone] Encounter Details Date Type Department Care Team (Late st Contact Info) Description 05/24/2023 Procedure Pass [facility] Admitting Dept Virtual Department 30 [place] [address] Social History Tobacco Use Types Packs/Day Years [...] Description 03/16/2026 1:30 PM EDT Office Visit [facility] 22 [place] [address] Sonny Delgadillo DO 22 [place] [address] [email or web address] documented as of this encounter Visit Diagnoses Not on filedocumented in this encounter Additional Health Concerns Infection Onset Date Last Indicated Resolved Time CoV-Risk 03/24/2024 03/24/2024 04/04/2024 1:23 AM EDT documented as of this encounter Care Teams Roll Bucker Relationship Specialty Start Date End Date Robby Ambrosio MD [address] [address] PCP - General Family Medicine 07/09/21 Sonny Delgadillo DO 22 [place] [address] [email or web address] Geriatric Medicine 09/03/25 documented as of this encounter Additional Source Comments The information contained in this document represents components of the legal health record. It is not the complete legal health record.[facility]
--- OUTSIDE RECORDS SUMMARY | 2025-11-10 13:15 | XMS_ITS | Encounter Summary ---
Author Organization [facility] Address [address] [place] [address] [place] [address] Phone Care Team Providers Care Pearl Hand Name Role Phone Robby Ambrosio MD Primary Care Provide r Sonny Delgadillo DO Unavailable Encounter Details Date Type Department Care Team (Late st Contact Info) Description 01/11/2025 Procedure Pass [facility], Ct Scan - [facility] [address] [place] [address] Social History Tobacco Use Types Packs/Day Years [...] Description 03/16/2026 1:30 PM EDT Office Visit [facility] 22 [place] [address] Sonny Delgadillo DO 22 [place] [address] documented as of this encounter Visit Diagnoses Not on filedocumented in this encounter Care Teams Pearl Hand Relationship Specialty Start Date End Date Robby Ambrosio MD [address] [address] PCP - General Family Medicine 07/09/21 Sonny Delgadillo DO [address] [place] [address] Geriatric Medicine 09/03/25 documented as of this encounter Additional Source Comments The information contained in this document represents components of the legal health record. It is not the complete legal health record.[facility]
--- OUTSIDE RECORDS SUMMARY | 2025-11-10 13:15 | XMS_ITS | Encounter Summary ---
Author Organization [facility] Address [address] [place] [address] Phone Care Team Providers Care Surfboard Designer Name Role Phone Marvin Bailey MD Primary Care Provider [phone] Marvin Bailey MD Primary Care Provider [phone] Jean Cardenas MD Primary Care Provider [phone] Robby Ambrosio MD Primary Care Provide r ElieSonny mullen DO Unavailable [phone] Encounter Details Date Type Department Care Team (Late st Contact Info) Description 12/17/2017 Procedure Pass [place] Admitting Dept - Virtual Department [address] [place] [address] Social History Tobacco Use Types Packs/Day Years [...] Description 03/16/2026 1:30 PM EDT Office Visit [facility] [address] [place] [address] Son[place] [address] [email or web address] documented as of this encounter Visit Diagnoses Not on filedocumented in this encounter Additional Health Concerns Infection Onset Date Last Indicated Resolved Time CoV-Risk 03/24/2024 03/24/2024 04/04/2024 1:23 AM EDT documented as of this encounter Care Teams Surfboard Designer Relationship Specialty Start Date [place] [address] [email or web address] PCP - General 09/02/17 08/09/19 [place] [address] [email or web address] PCP - General Internal Medicine 08/10/19 05/29/20 Jean Cardenas MD [address] [place] [address] [email or web address] PCP - General 05/30/20 07/08/21 [facility] [address] [address] PCP - General Family Medicine 07/09/21 Sonny Delgadillo DO 22 [place] [address] [email or web address] Geriatric Medicine 09/03/25 documented as of this encounter Additional Source Comments The information contained in this document represents components of the legal health record. It is not the complete legal health record.[facility]
--- OUTSIDE RECORDS SUMMARY | 2025-11-10 13:15 | XMS_ITS | Encounter Summary ---
Author Organization [facility] Address [address] [place] [address] [place] [address] Phone Care Team Providers Care Lathe Set Up Operator Name Role Phone Robby Ambrosio MD Primary Care Provide r Sonny Delgadillo DO Unavailable Encounter Details Date Type Department Care Team (Late st Contact Info) Description 08/20/2024 Procedure Pass [facility], Ct Scan - [facility] [address] [place] [address] Social History Tobacco Use Types Packs/Day Years Used Date Smoking Tobacco: Never Smokeless Tobacco: Never Alcohol Use Standard Drinks/Week Comments Not Currently 0 (1 standard drink = 0.6 oz pur e alcohol) rarely Home Health Assessment: Transportation Answer Date Recorded Lack of Transportation (Medical) No 08/24/2024 Lack of Transportation (Non-Medical) No 08/24/2024 Patient Unable or Declines to Respond No 08/24/2024 Education Answer Date Recorded Are you interested [...] Upcoming Encounters Date Type Department Care Team ([facility] st Contact Info) Description 03/16/2026 1:30 PM EDT Office Visit [facility] 22 [place] [address] Sonny Delgadillo DO 22 [place] [address] documented as of this encounter Visit Diagnoses Not on filedocumented in this encounter Care Teams Lathe Set Up Operator Relationship Specialty Start Date End Date Robby Ambrosio MD [address] [address] PCP - General Family Medicine 07/09/21 Sonny Delgadillo DO [address] [place] [address] Geriatric Medicine 09/03/25 documented as of this encounter Additional Source Comments The information contained in this document represents components of the legal health record. It is not the complete legal health record.[facility]
--- OUTSIDE RECORDS SUMMARY | 2025-11-10 13:15 | XMS_ITS | Encounter Summary ---
Author Organization [facility] Address [address] [place] [address] Phone Care Team Providers Care Division Order Analyst Name Role Phone Marvin Bailey MD Primary Care Provider [phone] Marvin Bailey MD Primary Care Provider [phone] Jean Cardenas MD Primary Care Provider [phone] Robby Ambrosio MD Primary Care Provide r ElieSonny mullen DO Unavailable [phone] Encounter Details Date Type Department Care Team (Late st Contact Info) Description 01/01/2018 Ancillary Orders [address] [address] Molly Olson PA-C [address] [place] [address] Orthopedics & Sports Medicine, [place] [address] [email or web address] Social History Tobacco Use Types Packs/Day Years [...] Description 03/16/2026 1:30 PM EDT Office Visit [facility] 22 [place] [address] [place] [address] [email or web address] documented as of this encounter Visit Diagnoses Not on filedocumented in this encounter Additional Health Concerns Infection Onset Date Last Indicated Resolved Time CoV-Risk 03/24/2024 03/24/2024 04/04/2024 1:23 AM EDT documented as of this encounter Care Teams Division Order Analyst Relationship Specialty Start Date [place] [address] [email or web address] PCP - General 09/02/17 08/09/19 [place] [address] [email or web address] PCP - General Internal Medicine 08/10/19 05/29/20 Jean Cardenas MD [address] [place] [address] [email or web address] PCP - General 05/30/20 07/08/21 Robby Ambrosio MD [address] [address] PCP - General Family Medicine 07/09/21 Sonny Delgadillo DO 22 [place] [address] [email or web address] Geriatric Medicine 09/03/25 documented as of this encounter Additional Source Comments The information contained in this document represents components of the legal health record. It is not the complete legal health record.[facility]
--- OUTSIDE RECORDS SUMMARY | 2025-11-10 13:15 | XMS_ITS | Encounter Summary ---
Author Organization [facility] Address [address] [place] [address] Phone Care Team Providers Care Veneer Taper Name Role Phone Marvin Bailey MD Primary Care Provider Jean Cardenas MD Primary Care Provider [phone] Robby Ambrosio MD Primary Care Provide r Sonny Delgadillo DO Unavailable [phone] Encounter Details Date Type Department Care Team (Latest Contact Info) Description 08/12/2019 Transcribe Orders Virtual Department [address] [place], [place] [id number] Fabio Mendes MD [address] [place] [address], [address] [place] [address] [email or web address] TIA (transient ischemic attack) (Primary Dx) Social History Tobacco Use Types Packs/Day Years [...] Description 03/16/2026 1:30 PM EDT Office Visit [facility] [address] [place] [address] Sonny Delgadillo DO 22 [place] [address] [email or web address] documented as of this encounter Results * US Carotid Duplex (Bilateral) (08/14/2019 2:41 PM EDT) Anatomical Region Laterality Modality Heart, Thoracic Vasculature, Neck Ultrasound 08/14/2019 4:14 PM EDT Impressions 08/14/2019 4:16 PM EDT Bilateral carotid plaquing without hemodynamically significant ICA stenoses demonstrated. POS - [id number] Narrative 08/14/2019 4:16 PM EDT COMPARISON: None CAROTID ULTRASOUND FINDINGS: Color duplex Doppler evaluation of the carotid arteries was performed. On the right there is a small amount of noncalcified plaque present throughout the distal CCA, extending into the bulb. Peak systolic velocity in the common carotid artery was measured at 0.91 m/s and within the internal carotid artery at 1.14 m/s corresponding to a ratio of 1.3. No elevated diastolic velocities or significant ICA spectral broadening apparent. On the left there is a small amount of noncalcified plaque present in the distal CCA and bulb. Peak systolic velocity in the common carotid artery was measured at 0.96 m/s and within the internal carotid artery at 0.74 m/s corresponding to a ratio of 0.77. No elevated diastolic velocities or significant ICA spectral broadening apparent. The above measurements are consistent with the presence of less than 50% ICA stenoses. Antegrade flow was demonstrated in both vertebral arteries. Any stenosis measurement is relative to the distal ICA diameters. Procedure Note Gerardo Still MD - 08/14/2019 COMPARISON: None CAROTID ULTRASOUND FINDINGS: Color duplex Doppler evaluation of the carotid arteries was performed. On the right there is a small amount of noncalcified plaque presentthroughout the distal CCA, extending into the bulb. Peak systolicvelocity in the common carotid artery was measured at 0.91 m/s and withinthe internal carotid artery at 1.14 m/s corresponding to a ratio of 1.3.No elevated diastolic velocities or significant ICA spectral broadeningapparent. On the left there is a small amount of noncalcified plaque present in thedistal CCA and bulb. Peak systolic velocity in the common carotid arterywas measured at 0.96 m/s and within the internal carotid artery at 0.74m/s corresponding to a ratio of 0.77. No elevated diastolic velocities orsignificant ICA spectral broadening apparent. The above measurements are consistent with the presence of less than 50%ICA stenoses. Antegrade flow was demonstrated in both vertebralarteries. Any stenosis measurement is relative to the distal ICA diameters. IMPRESSION: Bilateral carotid plaquing without hemodynamically significant ICAstenoses demonstrated. POS - [id number] us Fabio Mendes MD CV US NEUROVASCULAR Final Re sult documented in this encounter Visit Diagnoses Diagnosis TIA (transient ischemic attack)- Primary Unspecified transient cerebral ischemia TIA (transient ischemic attack) Unspecified transient cerebral ischemia documented in this encounter Additional Health Concerns Infection Onset Date Last Indicated Resolved Time CoV-Risk 03/24/2024 03/24/2024 04/04/2024 1:23 AM EDT documented as of this encounter Care Teams Veneer Taper Relationship Specialty Start Date End Date [place] [address] [email or web address] PCP - General Internal Medicine 08/10/19 05/29/20 Jean Cardenas MD 110 [facility] [address] [place] [address] [email or web address] PCP - General 05/30/20 07/08/21 Robby Ambrosio MD [address] [address] PCP - General Family Medicine 07/09/21 Sonny Delgadillo DO [address] [place] [address] [email or web address] Geriatric Medicine 09/03/25 documented as of this encounter Additional Source Comments The information contained in this document represents components of the legal health record. It is not the complete legal health record.[facility]
--- OUTSIDE RECORDS SUMMARY | 2025-11-10 13:15 | XMS_ITS | Encounter Summary ---
Author Organization [facility] Address [address] [place] [address] [place] [address] Phone Care Team Providers Care Green Chain Worker Name Role Phone Robby Ambrosio MD Primary Care Provide r Sonny Delgadillo DO Unavailable [phone] Encounter Details Date Type Department Care Team (Late st Contact Info) Description 05/27/2022 Procedure Pass [facility], Ct Scan - [address] [address] Social History Tobacco Use Types Packs/Day Years [...] Description 03/16/2026 1:30 PM EDT Office Visit [facility] 22 [place] [address] Sonny Delgadillo, DO 22 [place] [address] documented as of this encounter Visit Diagnoses Not on filedocumented in this encounter Additional Health Concerns Infection Onset Date Last Indicated Resolved Time CoV-Risk 03/24/2024 03/24/2024 04/04/2024 1:23 AM EDT documented as of this encounter Care Teams Green Chain Worker Relationship Specialty Start Date End Date Robby Ambrosio MD [address] [address] PCP - General Family Medicine 07/09/21 Sonny Delgadillo DO 22 [place] [address] Geriatric Medicine 09/03/25 documented as of this encounter Additional Source Comments The information contained in this document represents components of the legal health record. It is not the complete legal health record.[facility]
--- NOTE | 2025-11-10 13:17 | MHC.PC.OV ---
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 Required: No Is last menstrual period known: No Post menopausal: Yes Patient : No Allergies diazepam (Valium) Allergy (Unknown, Verified 11/10/25 13:20) disoriented Medication List - Last Reconciled 11/10/25 by Cesar Gonzalez MD albuterol sulfate 2.5 mg inhalation Q4-6H PRN albuterol sulfate 90 mcg/actuation 2 inhalations inhalation Q6H PRN donepezil 5 mg PO DAILY fluocinonide 0.05% 1 appl topical BID-QID PRN jldqvbpgduz-hzvzmkrfk-inyczmzd 100-62.5-25 mcg (Trelegy Ellipta) 1 inh inhalation DAILY hydrochlorothiazide 25 mg PO DAILY losartan 25 mg PO DAILY montelukast 10 mg PO DAILY omeprazole 10 mg PO DAILY Tobacco use date assessed: 11/10/25 Fall risk assessment: 1 Fall in past year Last assessed Fall Risk: 11/10/25 Dental Screening Dental Screen Date: 11/10/25 Did you have a dental visit in the last 12 months?: Yes Did you have a dental problem in the last 6 months where you did not have access to dental care?: No Was dental information given to patient?: Patient has 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 ?? Prior PCP:? Dr Bob at [facility] Last office visit/CPE:? 1 week ago fo rR leg pain. Asprirn, Tylenol & Tramadol. Referred to Neuro for tremor. Ortho for R Acute issue(s):? ?? PMHx:?Hypertension, memory changes, Donepazil Neuropsy: Dr Wolfe in [facility], Hearing loss, Asthma Dr Kulkarni, [place] hip Arthritis., GIB 5 yrs ago. Frequent falls - Uses Walker. Known murmur. SurgHx:?B/L Knee replacements, Hysterectomy, FHx:?Son: ETOH, Substance abuse. Dad CAD & [place]. Mom: Alzheimers SocHx: Nonsmoker, EtOH None. PFSH Medical History (Updated 11/10/25 @ 13:56 by Davonte Aceves) Psoriasis Depression Occasional tremors GERD (gastroesophageal reflux disease) Arthritis Hypertension Asthma Surgical History (Updated 11/10/25 @ 13:37 by Franci Lemus [facility]) H/O: hysterectomy History of intestinal surgery History of knee replacement Family History (Updated 11/10/25 @ 13:39 by Franci Lemus CMA) Son Substance abuse Alcoholism Illicit drug use Mother Hypertension Father Hypertension Paternal Grandfather Cancer Social History (Updated 11/10/25 @ 13:26 by Franci Lemus [facility]) Housing: House Alcohol intake: never Patient Tobacco Use Status: Never used Tobacco e-Cigarette/Vaping Use: Never Used Second Hand Smoke Exposure: No service: No Current occupational status: retired Current occupational exposures/hazards: No Cognitive needs: No Hearing needs: No Vision needs: No Questionnaire PHQ-9 Over the last 2 weeks, how often have you been bothered by any of the following problems? 1. Little interest or pleasure in doing things: several days 2. Feeling down, depressed, or hopeless: several days 3. Trouble falling or staying asleep, or sleeping too much: not at all 4. Feeling tired or having little energy: not at all 5. Poor appetite or overeating: not at all 6. Feeling bad about yourself - or that you are a failure or have let yourself or your family down: not at all 7. Trouble concentrating on things, such as reading the newspaper or watching television: not at all 8. Moving or speaking so slowly that other people could have noticed. Or the opposite - being so fidgety or restless that you have been moving around a lot more than usual: several days 9. Thoughts that you would be better off or of hurting yourself in some way: not at all Total score: 3 Depression Screening Interpretation: Negative Depression Screening Done: Yes 36741 - PHQ-9 Billing: Yes Source: Developed by Drs. Igor Macias, Sayra Pat, William Baires and colleagues, with an educational lilibeth from [employer]. Thrive Questionnaire Date Thrive assessed: 11/10/25 I am a: Patient What is your living situation today?: I have a steady place to live Within the past 12 months, did the food you bought not last and you didn't have the money to get more?: Never true Within the past 12 months, did you worry whether your food would run out before you got money to buy more?: Never true Do you have trouble paying for medicines?: No Do you have trouble getting transportation to medical appointments?: Yes Do you have trouble paying your heating and electricity bill?: No Do you have trouble taking care of your child, family member or friend?: No Do you have trouble with day-to-day activities such as bathing, preparing meals, shopping, managing finances, etc.?: Yes Are you currently unemployed and looking for a job?: No Are you interested in more education?: No Please select the resources that you would like help with: None Currently or been in a relationship where the following occur: No concerns reported THRIVE Score: 1 AUDIT C Alcohol Use Questionnaire (AUDIT-C) 1. How often do you have a drink containing alcohol?: Never 3. How often do you have six or more drinks on one occasion?: Never Total Score: 0 BELLE-7 AMB Questionnaire BELLE-7 Feeling nervous, anxious, or on edge: 1 = Several days Not being able to stop or control worryin = Several days Worrying too much about different things: 1 = Several days Trouble relaxin = Not at all Being so restless that it is hard to sit still: 0 = Not at all Becoming easily annoyed or irritable: 1 = Several days Feeling afraid as if something awful might happen: 2 = More than half the days Total BELLE-7 score (0-4 normal; 5-9 mild; 10-14 moderate; 15-21 severe): 6 Source: Developed by Drs. Igor Macias, Sayra Pat, William Baires and colleagues, with an educational lilibeth from [employer]. BELLE-7 Assessment Billing BELLE-7 Assessment Tool: BELLE-7 Assessment 17893 ACT Questionnaire In the past 4 weeks, how much of the time did your asthma keep you from getting as much done at work, school or at home?: None of the time During the past 4 weeks, how often have you had shortness of breath?: 3-6 times a week During the past 4 weeks, how often did your asthma symptoms wake you up at night or earlier than usual in the morning?: Not at all During the past 4 weeks, how often have you had to use your rescue inhaler or nebulizer medication?: 1-2 times a week How would you rate your asthma control during the past 4 weeks?: Well controlled Score: 19 Review of Systems Const Denies chills, Denies fatigue, Denies fever(s), Denies headache(s) and Denies weakness ENT Denies dizziness and Denies headache(s) Card Denies chest pain, Denies lightheadedness, Denies dyspnea and Denies other (Palpitations) Resp Denies cough, Denies dyspnea, Denies wheezing and Denies other ( shortness of breath) Musc Denies numbness and Denies tingling Neuro Denies dizziness, Denies headache(s), Denies numbness, Denies tingling, Denies paresthesias and Denies weakness Psych Denies anxiety and Denies depression Endo Denies fatigue Aller/Immun Denies wheezing Physical exam (Primary Care) Tobacco/Smoking Status: Tobacco use Status Patient Tobacco Use Status Never used Tobacco 11/10/25 13:26 e-Cigarette/Vaping Use Never Used 11/10/25 13:26 Depression Screening Interpretation: Negative Currently or been in a relationship where the following occur: No concerns reported Const General: no acute distress and well developed Nutritional Appearance: well nourished Orientation/consciousness: patient oriented x3 [facility] Head: Yes normocephalic and Yes atraumatic Eyes General: appearance normal, both eyes and all related structures Pupils: Equal, round and reactive pupils present EOM: EOMs intact bilaterally Resp Effort & Inspection: normal respiratory effort Auscultation: clear to auscultation bilaterally Cardio Rate: regular rate Rhythm: regular rhythm Heart sounds: S1 normal heart sound present, S2 normal heart sound present, no gallops, Murmur heart sound present (Systolic murmur heard loudest over pulmonic region) and no rubs Neuro General: patient oriented x3 and No gait normal Cranial nerves: Yes Equal, round and reactive pupils present Psych Affect: normal affect Coding Level of Care Code New Pt Level 4 (77412) Diagnoses Hypertension I10 Memory changes R41.3 Frequent falls R29.6 Asthma J45.909 Unsteady gait R26.81 Heart murmur R01.1 Occasional tremors R25.1 Dementia F03.90 Laboratory exam ordered as part of routine general medical examination Z00.00 Additional Codes BELLE-7 Assessment Billing - BELLE-7 Assessment Tool: BELLE-7 Assessment 98103 ([id number]) PHQ-9 - 12346 - PHQ-9 Billing: Yes ([id number]) Assessment & Plan Assessment & Plan (1) Hypertension: Code(s): I10 - Essential (primary) hypertension Category: Medical Plan: Blood pressure is controlled. Goal is less than 140/90 Continue current medications (2) Memory changes: Code(s): R41.3 - Other amnesia Category: Medical Plan: Memory changes and early dementia She was started on donepezil by her primary care physician or neuropsychiatrist Tolerating this medication. Has some moments of forgetfulness but currently is quite able to interact well with this provider. Encouraged follow-up with neuropsychiatry Continue donepezil Continue good social interaction Has hearing aids and was able to hear well with these today. (3) Frequent falls: Code(s): R29.6 - Repeated falls Category: Medical Plan: Patient notes frequent falls She says she gets no dizziness but that these are primarily mechanical She does have lower extremity weakness and right hip arthritis She is using a walker Has had physical therapy and I encouraged her to continue exercises learned at physical therapy Continue using walker Maintain good vision Will continue to monitor (4) Asthma: Code(s): J45.909 - Unspecified asthma, uncomplicated Category: Medical Plan: Lungs are clear today and she is breathing easily Taking her inhaled medications as prescribed Follow-up with Dr. Kulkarni, pulmonology, as recommended (5) Unsteady gait: Code(s): R26.81 - Unsteadiness on feet Category: Medical Plan: As above, patient has right hip arthritis and also lower extremity weakness. Also has issues with memory and early dementia. Has an upcoming appointment with Neurology and I recommended she discuss these with the neurologist (6) Heart murmur: Code(s): R01.1 - Cardiac murmur, unspecified Category: Medical Plan: Systolic murmur which sounds loud us to me over the pulmonic region. She has a family history of coronary artery disease (father) She says she has not had any workup for this Checking an echocardiogram (7) Occasional tremors: Comment: Right Hand Code(s): R25.1 - Tremor, unspecified Category: Medical Plan: Patient has intermittent tremors She has an upcoming appointment with Neurology. (8) Dementia: Code(s): F03.90 - Unspecified dementia, unspecified severity, without behavioral disturbance, psychotic disturbance, mood disturbance, and anxiety Category: Medical Plan: Early memory changes and dementia Mom complications due to Alzheimer's She is followed by neuropsychiatry and has an upcoming appointment with Neurology. (9) Laboratory exam ordered as part of routine general medical examination: Code(s): Z00.00 - Encounter for general adult medical examination without abnormal findings Category: Medical Plan: Check labs Plan Patient has unsteady gait memory changes/early dementia and complaint of tremors. She also notes recent episodes of being unable to move x2 without difficulty speaking or thinking. Unclear if these represent a seizure disorder, electrolyte or blood sugar imbalance or other neurologic issue. Has an upcoming appointment with Neurology and I recommended she discuss all of these with them. No family history of parkinsonism. Orders: Orders CA echo transthoracic complete Today R01.1 - Cardiac murmur, unspecified Comprehensive [place]. Panel Fast Today Z00.00 - Encounter for general adult medical examination without abnormal findings Complete Blood Count Auto Diff Today Z00.00 - Encounter for general adult medical examination without abnormal findings Lipid Panel Today Z00.00 - Encounter for general adult medical examination without abnormal findings Microalbumin, Random (w Creat) Today I10 - Essential (primary) hypertension TSH reflex Free T4 Today Z00.00 - Encounter for general adult medical examination without abnormal findings UA CC w/rflx Micro + Cult Today Z00.00 - Encounter for general adult medical examination without abnormal findings Vitamin D 25-OH Total Today E55.9 - Vitamin D deficiency, unspecified Vitamin B12 and Folate Today E53.8 - Deficiency of other specified B group vitamins
[2025-11-10 13:26] VITALS: BP 138/80; PULSE 57; RESP 15; TEMP 36.4; O2SAT 98; BMI 40.1
== END 2025-11-10 14:00 | disposition home or self-care (01) ==
LOC: HO.HMCFM 13:12
PROVIDERS: PCP Family Medicine; Visit Provider Family Medicine
DX: I10 Essential (primary) hypertension (principal); R41.3 Other amnesia; R29.6 Repeated falls; J45.909 Unspecified asthma, uncomplicated; R26.81 Unsteadiness on feet; R01.1 Cardiac murmur, unspecified; R25.1 Tremor, unspecified; F03.90 Unspecified dementia, unspecified severity, without behavioral disturbance, psychotic disturbance, mood disturbance, and anxiety; Z00.00 Encounter for general adult medical examination without abnormal findings

== ENCOUNTER → 2025-11-10 13:12 | Outpatient (BNVA) | payer BC, SELFPAY | PROVIDERS: PCP Family Medicine; Visit Provider Family Medicine | DX: Z00.00 Encounter for general adult medical examination without abnormal findings (principal); I10 Essential (primary) hypertension; R41.3 Other amnesia; R29.6 Repeated falls; R01.1 Cardiac murmur, unspecified; R25.1 Tremor, unspecified; F03.90 Unspecified dementia, unspecified severity, without behavioral disturbance, psychotic disturbance, mood disturbance, and anxiety; J45.909 Unspecified asthma, uncomplicated; R26.81 Unsteadiness on feet | CPT/HCPCS: 96127 ==